=== PATIENT | female | born 1965 | race Caucasian/White ===

== ENCOUNTER 2018-01-13 06:09 | Emergency (ER) | payer OTHER ==
[2018-01-13 06:16] VITALS: BP 118/57; PULSE 58; TEMP 98; BMI 22.3
--- NOTE | 2018-01-13 06:52 | PDOC ---
History of Present Illness - History of Present Illness Initial Comments: 01/13/18 06:52 52 years old multiple medical problems including fibromyalgia, migraines, arthrtitis, lymphedema, reynauds syndrome, ITP rectal cancer status post resection and anastomosis in July presents to the emergency department with mechanical slip and fall. Patient states she was going to use the bathroom at approximately 4:00 in the morning slipped on a floor landing on her tailbone complaining of moderate to severe pain to her tailbone. Patient began to try to ambulate back to her bed began to feel dizzy lightheaded woozy and flush and syncopized landing on her shoulder and elbow. Patient then went to bed and called a friend. Patient has had one episode of syncope in the past. Pain in her shoulder and elbow is very mild patient states she did not hit head there is no head trauma she does not have a headache or neck pain. She is mostly complaining of pain to her Sacrum which is moderate persistent constant and worse with movement. <Francisco Katz - Last Filed: 01/13/18 07:05> <Demetris Siagla - Last Filed: 01/13/18 08:43> - General Chief Complaint: Pain Stated Complaint: FELL ON MY TAILBONE Time Seen by Provider: 01/13/18 06:46 Past History - Past Medical History Cancer: Yes (Rectal) COPD: No Other medical history: Fibromyalgia, migrains, arthritis, lymphedema, Raynaud's - Surgical History GI Surgery: Yes (Low anterior resection (rectal CA)) - Immunization History Immunization Up to Date: No (REFUSING TT.) - Suicide/Smoking/Psychosocial Hx Smoking History: Never smoked Have you smoked in the past 12 months: No Information on smoking cessation initiated: No Hx Alcohol Use: No Drug/Substance Use Hx: No Substance Use Type: None <Francisco Katz - Last Filed: 01/13/18 07:05> <Demetris Sigala - Last Filed: 01/13/18 08:43> - Past Medical History Allergies/Adverse Reactions: Allergies Allergy/AdvReac Type Severity Reaction Status Date / Time Fish Containing Products Allergy Verified 01/13/18 06:11 sulfite Allergy Verified 01/13/18 06:11 FISH Allergy Severe Uncoded 01/13/18 06:57 MOLD Allergy Severe Uncoded 01/13/18 06:58 NUTS Allergy Severe Uncoded 01/13/18 06:59 SULFI Allergy Severe Uncoded 01/13/18 06:59 Home Medications: Ambulatory Orders Ibuprofen 600 mg PO Q6H PRN 01/13/18 Lysine 1,000 mg PO DAILY 01/13/18 Magnesium Aspartate Dihydrate [Aspartic Acid Magnesium Salt] 400 gm PO DAILY Review of Systems - Review of Systems Comments:: 01/13/18 06:53 ROS: A complete review of 10 out of 10 review of systems is taken and is negative apart from what is previously mentioned below and in the HPI. <Francisco Katz - Last Filed: 01/13/18 07:05> *Physical Exam - Vital Signs Last Vital Signs Temp Pulse Resp BP Pulse Ox 98.0 F 58 L 20 118/57 98 01/13/18 06:12 01/13/18 06:12 01/13/18 06:12 01/13/18 06:12 01/13/18 06:12 - Physical Exam Comments: 01/13/18 06:54 Vitals: Triage Vital signs reviewed General Appearance: no acute distress, well nourished well developed, Head: Atraumatic, Eyes: Pupils equal reactive round, extraocular movement intact Neck: Supple;No Nucal rigidity Chest Wall: Nontender Cardiac: Regular rate and rhythym, no murmurs, no rubs, no gallops, Lungs: Clear to auscultation bilateral, good air movement bilaterally, Abdomen: Soft, non distended, normal bowel sounds, non tender to palpation Rectal: Exam deferred Extremities: Full range of motion to all extremities, no cyanosis, clubbing, or edema Skeletal: Tenderness to palpation to the sacrum and left buttock, no midline spinal tenderness palpation no midline neck tenderness to palpation, no significant shoulder or elbow tenderness palpation no bruising noted full range of motion in all extremities. Skin: Warm and dry, no rashes or lesions, no rash, no petechiae Neuro: AOX3; Cranial Nerves 2-12 grossly intact, Strength intact to all extremities, Sensation intact to all extremities Psych: normal mood, normal affect <Francisco Katz - Last Filed: 01/13/18 07:05> - Vital Signs Last Vital Signs Temp Pulse Resp BP Pulse Ox 98.0 F 58 L 20 118/57 98 01/13/18 06:12 01/13/18 06:12 01/13/18 06:12 01/13/18 06:12 01/13/18 06:12 <Demetris Sigala - Last Filed: 01/13/18 08:43> ED Treatment Course - LABORATORY CBC & Chemistry Diagram: 01/13/18 07:00 01/13/18 07:00 - ADDITIONAL ORDERS Additional order review: Laboratory Results 01/13/18 01/13/18 07:00 07:00 PT with INR 11.4 INR 1.02 PTT (Actin FS) 29.4 Sodium 135 L Potassium 4.0 Chloride 99 Carbon Dioxide 28 Anion Gap 8 BUN 14 Creatinine 0.7 Creat Clearance w eGFR > 60 Random Glucose 94 Calcium 9.4 Total Bilirubin 0.6 AST 20 ALT 16 Alkaline Phosphatase 34 Total Protein 6.3 L Albumin 3.9 01/13/18 07:00 RBC 4.48 MCV 85.1 MCHC 33.1 RDW 13.5 MPV 9.4 Neutrophils % 68.2 Lymphocytes % 24.6 Monocytes % 4.8 Eosinophils % 1.7 Basophils % 0.7 <Demetris Sigala - Last Filed: 01/13/18 08:43> Medical Decision Making - Medical Decision Making 01/13/18 06:55 52 years old multiple medical problems presents to the emergency department with fall then later complicated by syncopal episode. Patient with previous history of syncope based on the pain the patient was experiencing from the first fall, followed by typical prodromal symptoms of dizziness lightheadedness flushing sweating, syncopal episodes appears to be vagal in nature however given co-morbidities we'll check EKG labs and coags We will x-ray left hip pelvis and sacrum given tenderness to palpation on examination at this point patient refusing x-ray of elbow and shoulder which is reasonable given no significant tenderness palpation and full range of motion. I offered the patient pain medication such as IV Tylenol which patient refused. States she would prefer to take Motrin which she would normally take for pain. At this time no indication for head CT givnen normal neurologic examination and no evidence of head trauma Dr. Zhu to follow-up labs x-rays and reassess patient. <Francisco Katz - Last Filed: 01/13/18 07:05> *DC/Admit/Observation/Transfer <Francisco Katz - Last Filed: 01/13/18 07:05> <Demetris Sigala - Last Filed: 01/13/18 08:43> Diagnosis at time of Disposition: Sacral pain Syncope Qualifiers: Syncope type: unspecified Qualified Code(s): R55 - Syncope and collapse - Discharge Dispostion Disposition: HOME Condition at time of disposition: Stable - Patient Instructions Printed Discharge Instructions: DI for Low Back Pain, DI for Syncope in Adults (Fainting) Additional Instructions: Rest, fluids, and ibuprofen as necessary Return to ER if further symptoms Otherwise follow-up with primary physician in 2-3 days.
[2018-01-13 07:37] LABS: BASO % 0.7 % (0-2.0); EOS % 1.7 % (0-4.5); HEMATOCRIT 38.1 % (32.4-45.2); HEMOGLOBIN 12.6 GM/dl (10.7-15.3); LYMPH % 24.6 % (8-40); MCH 28.2 pg (25.7-33.7); MCHC 33.1 g/dl (32.0-36.0); MEAN CELL VOLUME 85.1 fl (80-96); MEAN PLT VOLUME 9.4 fl (7.5-11.1); MONO % 4.8 % (3.8-10.2); NEUT % 68.2 % (42.8-82.8); PLATELET COUNT 192 K/MM3 (134-434); RBC 4.48 M/mm3 (3.60-5.2); RDW 13.5 % (11.6-15.6); WHITE BLOOD COUNT 7.9 K/mm3 (4.0-10.8)
[2018-01-13 08:15] LABS: ACTIVATED PTT 29.4 SECONDS (25.2-36.5)
[2018-01-13 08:20] LABS: INR 1.02 (0.82-1.09); PROTHROMBIN TIME (PATIENT) 11.4 SEC (10.2-13.0)
[2018-01-13 08:26] LABS: ALBUMIN 3.9 g/dl (3.5-5.0); ALK PHOS 34 U/L (32-92); ANION GAP 8 MMOL/L (8-16); BILIRUBIN,TOTAL 0.6 mg/dl (0.2-1.0); BLOOD UREA NITROGEN 14 mg/dl (7-18); CALCIUM 9.4 mg/dl (8.4-10.2); CHLORIDE 99 mmol/L (98-107); CO2 28 mmol/L (22-28); CREATININE 0.7 mg/dl (0.6-1.3); GLUCOSE,RANDOM 94 mg/dl (74-106); SGOT/AST 20 U/L (10-42); SGPT/ALT 16 U/L (10-40); SODIUM 135 mmol/L (136-145); TOT PROT 6.3 g/dl (6.4-8.3)
--- NOTE | 2018-01-13 08:42 | PDOC ---
*Physical Exam - Vital Signs Last Vital Signs Temp Pulse Resp BP Pulse Ox 98.0 F 58 L 20 118/57 98 01/13/18 06:12 01/13/18 06:12 01/13/18 06:12 01/13/18 06:12 01/13/18 06:12 - Physical Exam Comments: 01/13/18 08:40 The patient's laboratories, EKG, and x-rays were reviewed EKG is normal except for mild sinus bradycardia, which is known to the patient and his chronic X-rays are clear Laboratory work is within normal limits Patient is discharged in the company of family, ambulatory and in no significant pain or other distress to follow-up with her primary physician. Copies of lab work EKG and x-rays are furnished. ED Treatment Course - LABORATORY CBC & Chemistry Diagram: 01/13/18 07:00 01/13/18 07:00 - ADDITIONAL ORDERS Additional order review: Laboratory Results 01/13/18 01/13/18 07:00 07:00 PT with INR 11.4 INR 1.02 PTT (Actin FS) 29.4 Sodium 135 L Potassium 4.0 Chloride 99 Carbon Dioxide 28 Anion Gap 8 BUN 14 Creatinine 0.7 Creat Clearance w eGFR > 60 Random Glucose 94 Calcium 9.4 Total Bilirubin 0.6 AST 20 ALT 16 Alkaline Phosphatase 34 Total Protein 6.3 L Albumin 3.9 01/13/18 07:00 RBC 4.48 MCV 85.1 MCHC 33.1 RDW 13.5 MPV 9.4 Neutrophils % 68.2 Lymphocytes % 24.6 Monocytes % 4.8 Eosinophils % 1.7 Basophils % 0.7 *DC/Admit/Observation/Transfer Diagnosis at time of Disposition: Sacral pain Syncope Qualifiers: Syncope type: unspecified Qualified Code(s): R55 - Syncope and collapse - Discharge Dispostion Condition at time of disposition: Fair - Referrals - Patient Instructions - Post Discharge Activity
--- NOTE | 2018-01-13 10:27 | EKG ---
Test Reason : Blood Pressure : / mmHG Vent. Rate : 051 BPM Atrial Rate : 051 BPM P-R Int : 160 ms QRS Dur : 070 ms QT Int : 442 ms P-R-T Axes : 065 038 058 degrees QTc Int : 407 ms SINUS BRADYCARDIA OTHERWISE NORMAL ECG NO PREVIOUS ECGS AVAILABLE Confirmed by RAMA BATES MD ([id number]) on 01/13/2018 10:26:33 AM Referred By: MILLIE MARISCAL Confirmed By:RAMA BATES MD
== END 2018-01-13 08:50 | disposition home or self-care (01) ==
LOC: FER 06:09
DX: M53.3 Sacrococcygeal disorders, not elsewhere classified (principal); R55 Syncope and collapse; Z85.048 Personal history of other malignant neoplasm of rectum, rectosigmoid junction, and anus; M79.7 Fibromyalgia; I73.00 Raynaud's syndrome without gangrene; D69.3 Immune thrombocytopenic purpura
CPT/HCPCS: 36415; 72220-TC-FY; 73523-TC-FY; 80053; 85025; 85610; 85730; 93005; 99282-25